=== PATIENT | female | born 1965 | race Caucasian/White ===

== ENCOUNTER 2019-03-31 17:59 | Emergency (ER) | payer OTHER ==
[~2019-03-31] VITALS: Ht 167.6 cm; Wt 99.8 kg
[~2019-03-31 17:59] MED LIST: ARMOUR THYROID120 M1 PO; B-12 KIT1000 MCG/1 IJ; BACTRIM DS TAB1 EACH PO
[2019-03-31] MEDS ORDERED: SPIRONOLACTONE50 MG PO (18:08)
[2019-03-31] MEDS ORDERED: PHENTERMINE HCL15 MG PO (18:08)
[2019-03-31 18:40] LABS: ABSOLUTE BASOPHILS 0.1 thou/uL (0.0-0.2); ABSOLUTE LYMPHOCYTES 1.6 thou/uL (0.8-5.3); ABSOLUTE MONOCYTES 1.1 thou/uL (0.0-1.2); BASOPHILS 0.6 %; HEMATOCRIT 49.9 % (37.0-47.0); HEMOGLOBIN 16.6 gm/dL (12.0-15.0); LYMPHOCYTES 9.9 %; MCH 28.7 pg (26.0-34.0); MCHC 33.2 g/dL (28.0-37.0); MCV 86.4 fL (80.0-100.0); MONOCYTES 7.1 %; MPV 8.1 fl. (7.2-11.1); NUCLEATED RBCS 0 /100WBC; PLATELET COUNT* 391 thou/uL (150-400); POLYS 82.4 %; RBC 5.77 mil/uL (4.20-5.00); RDW-CV 14.1 % (10.5-14.5); WBC 15.8 thou/uL (4.0-11.0)
[2019-03-31 18:56] LABS: CALCIUM 9.6 mg/dL (8.5-10.1); CREATININE 1.4 mg/dL (0.6-1.3)
[2019-03-31 19:01] LABS: ALBUMIN 3.9 g/dL (3.4-5.0); TOTAL BILIRUBIN 0.2 mg/dL (<0.1-1.0); TOTAL PROTEIN 7.7 g/dL (6.4-8.2)
[2019-03-31 19:14] LABS: URINE BILIRUBIN NEGATIVE (Negative); URINE BLOOD NEGATIVE (Negative); URINE CLARITY CLEAR; URINE COLOR YELLOW; URINE GLUCOSE-RANDOM NEGATIVE (Negative); URINE KETONES NEGATIVE (Negative); URINE LEUKOCYTES-REFLEX TRACE (Negative); URINE NITRITE-REFLEX NEGATIVE (Negative); URINE PROTEIN NEGATIVE (Negative); URINE SPECIFIC GRAVITY 1.025 (1.005-1.030); URINE UROBILINOGEN 0.2 E.U./dl (0.2-1.0)
[2019-03-31 19:23] LABS: AMP/METHAMP Negative (Negative); BARBITURATES Negative (Negative); BENZODIAZEPINES Negative (Negative); COCAINE Negative (Negative); METHADONE Negative (Negative); OPIATES Negative (Negative); PCP Negative (Negative); THC Negative (Negative)
[2019-03-31 19:42] LABS: SQUAMOUS 0-3 Few /LPF (0-3)
[2019-03-31 19:44] LABS: BACTERIA-REFLEX 1-9 Few /HPF (None Seen); CASTS None Seen /LPF (None Seen); CRYSTALS None Seen /LPF (None Seen); URINE RBC 0-2 Rare /HPF (0-2); URINE WBC-REFLEX 0-5 Rare /HPF (0-5)
[2019-03-31] MEDS ORDERED: MEDROLDOSEPACK PO (20:49)
[2019-03-31] MEDS ORDERED: AMOXICILLIN875 MG PO (20:49)
[2019-03-31 21:00] VITALS: BP 157/79
--- NOTE | 2019-04-03 10:40 | EKG ---
[place] [address] ELECTROCARDIOGRAM REPORT Name: IVIS TARIQ [id number] Admission: 03/31/19 Attend Phys: Discharge: 03/31/19 Date of : 65 Report #: [id number] THIS REPORT FOR: //name// [facility] ED Test Date: 2019-03-31 Test Time: 18:09:22 Pat Name: IVIS TARIQ Department: Room: Gender: F Parking Patroller: LACEY : 1965 Requested By: Claudio Carrillo Order Number: [id number] Reading MD: Fidencio Pena Measurements Intervals [place] Rate: 129 P: 66 MS: 153 QRS: 73 QRSD: 92 T: 12 QT: 293 QTc: 430 Interpretive Statements Sinus tachycardia No previous ECG available for comparison Electronically Signed On 04-03-2019 10:39:54 [employer] by Fidencio Pena [email or web address] <ELECTRONICALLY SIGNED> By: Fidencio Pena MD, [facility] 04/03/19 1039 1809 1809 Fidencio Pena MD, FACC /EPI
== END 2019-03-31 21:00 | disposition home or self-care (01) ==
LOC: M.ERS 17:59
PROVIDERS: Emergency Medicine Emergency Medical Services
DX: R06.02 Shortness of breath (principal); R00.0 Tachycardia, unspecified